=== PATIENT | female | born 1975 | race Caucasian/White ===

== ENCOUNTER → 2018-08-13 | Outpatient (CLI) | payer BC ==
[2016-09-22 05:15] VITALS: BMI 32.8
[~2018-08-13] MED LIST: IBUP800T37 PO; LOR5/325 PO; PREN-161 PO
--- NOTE | 2018-08-19 08:33 | RADIOLOGY IMAGING REPORT ---
FACILITY: [facility] PATIENT NAME: GAIL CABRERA : [id number] MR: [id number] V: [id number] EXAM DATE: [id number] ORDERING PHYSICIAN: SYD JOE TECHNOLOGIST: Marita Fermin PROCEDURE:BILATERAL DIGITAL SCREENING MAMMOGRAM WITH CAD ASSISTED INTERPRETATION & 3D TOMOSYNTHESIS COMPARISON:None. INDICATIONS:SCREENING FINDINGS: The breasts are heterogeneously dense. Benign appearing asymmetries and a few benign appearing calcifications are scattered bilaterally. DIAGNOSTIC CATEGORY 1--NEGATIVE. RECOMMENDATIONS: ROUTINE MAMMOGRAM AND CLINICAL EVALUATION IN 1 YR. IMPRESSION: BIRADS 1: Negative. Dictated by: Carl Marmolejo M.D. on 08/13/2018 at 13:56 Transcribed by: MEGAN on 08/13/2018 at 14:13 Approved by: Felicitas Melvin M.D. on 08/19/2018 at 8:32 [facility]
== END ==
LOC: MAMO 01:20
PROVIDERS: ATTEND Obstetrics & Gynecology
DX: Z12.31 Encounter for screening mammogram for malignant neoplasm of breast (principal)
CPT/HCPCS: 77063; 77067